=== PATIENT | male | born 2000 | race Caucasian/White ===

== ENCOUNTER 2024-03-16 08:08 | Emergency (ER) | payer OTHER ==
[~2024-03-16] VITALS: Ht 177.8 cm; Wt 65.8 kg
[~2024-03-16 08:08] MED LIST: NKHM
[2024-03-16] MEDS ORDERED: AVPAK AZITHROM250 MG PO (09:39)
== END 2024-03-16 09:49 | disposition home or self-care (01) ==
LOC: ED 08:08
DX: J40 Bronchitis, not specified as acute or chronic (principal)